=== PATIENT | male | born 1965 | race Caucasian/White ===

== ENCOUNTER → 2017-09-04 14:48 | Outpatient (CLI) | payer OTHER, SELFPAY ==
--- NOTE | 2017-09-04 14:50 | CT_ITS ---
STUDY: CT ABDOMEN AND PELVIS WITH CONTRAST REASON FOR EXAM: Male, 52 years old. Diverticulitis RADIATION DOSAGE (If Supplied By Facility): CTDIvol = ( 9.41 ) mGy, DLP = ( 686.15 ) mGycm TECHNIQUE: Transaxial images were obtained from the dome of the diaphragm to the symphysis pubis without oral contrast. 100 ml of Isovue 300 contrast was administered. Sagittal and coronal images were reconstructed. Individualized dose optimization techniques were used for this CT. COMPARISON: None. FINDINGS: There is atelectasis at the lung bases. The visualized portions of the heart and pericardium are within normal limits. There are no calcified gallstones present. The liver is within normal limits. There are no suspicious hepatic lesions. The spleen is normal in size. There is fatty atrophy of the pancreas. The adrenal glands are within normal limits. There are no obstructing renal stones. There is no hydronephrosis. There are no focal renal lesions. Normal visualized stomach. There is no bowel obstruction or inflammation. There is a large amount of stool in the colon, consistent with constipation. The appendix is not visualized, but there are no findings to suggest acute appendicitis. There are fat-containing ventral hernias. There is no bowel containing hernia. The aorta is normal in caliber. There is no abdominal or pelvic free air, free fluid, fluid collection or lymphadenopathy. There are no destructive osseous lesions. The patient is status post posterior fusion of L3-L5. CT/Abdomen/Pelvis WITH Contrast IMPRESSION: No bowel obstruction or inflammation. Constipation. Fat containing ventral hernias. No bowel-containing hernia. Fatty atrophy of the pancreas. Electronically Signed: Alex Estrada, at 16:25 EDT Tel , Service support ,
== END ==
PROVIDERS: Family Provider Internal Medicine; PCP Internal Medicine; Visit Provider Internal Medicine
DX: K57.32 Diverticulitis of large intestine without perforation or abscess without bleeding (principal); K50.90 Crohn's disease, unspecified, without complications
CPT/HCPCS: 74177; Q9967

== ENCOUNTER 2019-02-21 11:49 | Day surgery (SDC) | payer OTHER, SELFPAY ==
[2019-02-21] VITALS (7 sets, daily range): BP systolic 112–143; BP diastolic 50–90; PULSE 51–68; RESP 16; TEMP 36.2–36.8; O2SAT 94–98; BMI 24.3
[2019-02-21] MEDS: Lactated Ringers 1,000 ML 100 ML IV ×2 (12:28→14:30)
--- NOTE | 2019-02-21 13:00 | COLBX_PTH ---
PATIENT: XIOMARA VALDES LOC: EN U#:[id number] AGE/SX: 53/M ROOM: RE02/21/[address]: Dr. Alka Simpson MD : 1965 BED: DIS: 02/21/2019 SPEC #: [id number] RECD: 02/21/19 15:37 STATUS: OUMAR REHeather #: [id number] YAS: 02/21/19 13:[address]: Alka Simpson DEPT: SURGICAL PATHOLOGY RECD BY: Grace Coreas ENTERED: 02/22/19 11:02 SP TYPE: COLON BX OTHR DR: Dr. Morgan Yousif MD Tissues: Cecum, NOS Procedures: Surgery Specimen Level IV HEADER OPERATION: Colonoscopy (MAC) PRE-OP DIAGNOSIS: Screening TISSUE SUBMITTED: Cecal polyp MICROSCOPIC DIAGNOSIS Cecal polyp, biopsy: Fragments of tubular adenoma. AM:zaki 02/23/19 MICROSCOPIC DESCRIPTION Slides are reviewed. GROSS DESCRIPTION Received in fixative is one container labeled with the patient's name and designated cecal polyp. The specimen consists of multiple irregular fragments of light alvarez soft tissue that in aggregate measure 0.5 x 0.5 x 0.1 cm. The specimen is totally submitted in one cassette. / SJ:zaki 02/22/19 TC:5 CPT: 10701
--- NOTE | 2019-02-21 13:56 | HP.PCM_ITS ---
History and Physical Date of Admission: 02/21/19 HISTORY AND PHYSICAL ? Derick Schmitz 1965 ? REFERRING PHYSICIAN: Self ? CHIEF COMPLAINT: Consult (Consult Colonoscopy) ? HPI: The patient is a 53 year old male referred for endoscopy. Derick notes a personal history of Crohn's disease requiring colon resection in the late 80s- early 90s, also reports history of colon polyp. Notes chronic issues with constipation. Patient denies any blood in stools, black tarry stools or abdominal pain. Denies family history of colon issues. The patient notes no upper GI complaints currently. States previously had EGD in 2015 without concerning findings. ? Derick has undergone prior colonoscopy, states last endoscopy procedure was in April 2015, records not currently available for review. ? Patient's past medical history is significant for Crohn's as noted above, history of diverticulitis, spinal stenosis, has undergone multiple back surgeries and uses fentanyl patches. Notes has also had several episodes of pneumonia. Has incisional hernias due to his prior Crohn's surgeries which are asymptomatic. Patient denies any chest pain, shortness of breath or recent hospitalizations. Denies problems with sedation in the past. ? ? PAST?MEDICAL?HISTORY PAST MEDICAL HISTORY Diagnosis Date ? Crohn's colitis (HCC) ? ? Depression ? ? Diverticulitis ? ? GERD (gastroesophageal reflux disease) ? ? Interstitial cystitis ? ? Osteoporosis ? ? Spinal stenosis ? ? ? PAST?SURGICAL?HISTORY PAST SURGICAL HISTORY Procedure Laterality Date ? APPENDECTOMY HX ? ? ? BACK SURGERY HX ? 1995 ? Lumbar x10 ? CATARACT EXTRACTION HX ? ? ? INGUINAL HERNIA REPAIR HX Right 2018 ? KNEE SURGERY HX Left 1981 ? PAST SURGICAL HISTORY OF ? ? ? d/t crohns ? PAST SURGICAL HISTORY OF ? 2002 ? placement and removal of morphine pump ? ROTATOR CUFF REPAIR Left 2013 ? SHOULDER SURGERY HX Right 2017 ? bone spur ? TONSILLECTOMY HX ? 1976 ? ? ? CURRENT?MEDICATIONS ? Current Outpatient Medications: acetaminophen (TYLENOL) 500 mg tablet Take 500 mg by mouth. fentaNYL (DURAGESIC) 50 mcg/hr Apply 3 Patches as directed every 72 hours. ? No current facility-administered medications for this visit. ? ALLERGIES: Ciprofloxacin; Penicillin ? PERSONAL HISTORY: SOCIAL?HISTORY Social History Socioeconomic History Marital status: Spouse name: Not on file Number of children: Not on file Years of education: Not on file Highest education level: Not on file Occupational History Not on file Social Needs Financial resource strain: Not on file Food insecurity: Worry: Not on file Inability: Not on file Transportation needs: Medical: Not on file Non-medical: Not on file Tobacco Use Smoking status: Never Smoker Smokeless tobacco: Never Used Substance and Sexual Activity Alcohol use: Not on file Drug use: Not on file Sexual activity: Not on file Lifestyle Physical activity: Days per week: Not on file Minutes per session: Not on file Stress: Not on file Relationships Social connections: Talks on phone: Not on file Gets together: Not on file Attends uatsdin service: Not on file Active member of club or organization: Not on file Attends meetings of clubs or organizations: Not on file Relationship status: Not on file Intimate partner violence: Fear of current or ex partner: Not on file Emotionally abused: Not on file Physically abused: Not on file Forced sexual activity: Not on file Other Topics Concerns: Not on file Social History Narrative Not on file ? FAMILY HISTORY: FAMILY?HISTORY History reviewed. No pertinent family history. ? REVIEW OF SYMPTOMS: The review of systems data was entered by the nurse and reviewed by me ? Nursing Notes: Sung Ravi LPN 01/10/2019 8:34 AM Signed REVIEW OF SYSTEMS: General: The patient denies fatigue, denies weight loss, denies weight gain, denies feeling hot, and NOTES feelings of cold. Eyes: The patient denies glaucoma, NOTES eye injury/surgery, does not wear glasses or contacts. Ear/Nose/Throat: The patient denies allergies, denies hayfever, denies ear infections, and denies bloody noses. Cardiovascular: The patient denies chest pain, denies heart disease, NOTES high blood pressure,denies cardiac stent, denies prior heart attack, denies irregular heart beat, denies high cholesterol, denies poor circulation, denies heart failure, other cardiac issues, denies claudication, denies cold feet, denies peripheral arterial stent. Respiratory: The patient denies tuberculosis, NOTES pneumonia, denies frequent cough, denies pulmonary embolism, denies shortness of breath, and denies coughing up blood. Gastrointestinal: The patient denies difficulty swallowing, NOTES acid reflux, denies ulcers, denies vomiting, denies jaundice/hepatitis, denies gallbladder problems, denies black or tarry stools, denies hemorrhoids, denies bleeding from rectum, NOTES diverticulitis, NOTES constipation, denies diarrhea, denies loss of stool control, and NOTES hernias. Kidney/Bladder: The patient denies kidney stones, NOTES urine infections, and denies bloody urine. Skin: The patient denies a history of skin cancer, denies bleeding/changing moles, and denies a history of skin rash. Neurologic: The patient denies a history of epilepsy/convulsions, denies headaches, denies head/spinal injuries, and denies stroke/TIA. Psychiatric: The patient denies psychiatric medications, NOTES depression, and denies voices, denies substance abuse. Endocrine: The patient denies thyroid disorders, denies diabetes, and denies hormonal problems. Hematologic: The patient denies a history of bruising, denies bleeding, and denies anemia, denies blood clots. Infections: The patient denies a history of measles and mumps, denies r heumatic fever, and denies sexually transmitted diseases. Musculoskeletal: The patient NOTES back pain/injury, NOTES back problems, denies sciatica, denies knee/foot trouble, NOTES arthritis, or denies gout. ? ? When was patient's last Mammogram screening? N/A ? Last Colonoscopy: 04/29 ? Sung Ravi LPN I have confirmed and edited as necessary, the PFSH and ROS obtained by others. ? PHYSICAL EXAMINATION: ? General: The patient is 53 year old male, well nourished, well hydrated in no acute distress. The patient is oriented to time, place, and person. ? VITALS: Blood pressure 148/88, pulse 82, temperature 36.6 ?C (97.9 ?F), height 182.9 cm (6'), weight 85.5 kg (188 lb 9.6 oz), SpO2 98 %. Body mass index is 25.58 kg/m?. ? HEENT: Normal cephalic, ataumatic, pupils are equally round, sclera are anicteric, mucous membranes are moist, oropharynx is clear. Neck has no masses, asymmetry or lymphadenopathy. ? Respiratory: Clear to auscultation and percussion. Normal respiratory excursion and pattern. ? Cardiac: Examination is regular rate and rhythm. Normal S1/S2 ? Abdominal exam: Soft, nontender, with no palpable masses. No hepatosplenomegaly. No palpable hernias. ? Extremities: no clubbing, cyanosis or edema. No adenopathy. ? LABORATORY VALUES: As Noted ? RADIOLOGIC STUDIES: As Noted ? ? Assessment IMPRESSION: encounter for surveillance colonoscopy, personal history of Crohn's colitis and colon polyps ? PLAN: I have reviewed my findings with the surgeon. Will plan for lower endoscopy. We discussed the risks and benefits of the planned endoscopy. I have informed the patient that complications can occur including failure to complete the endoscopy and perforation. The patient had the opportunity to ask questions concerning the planned endoscopy. My staff has also explained the procedure to the patient in understandable terms and has given the patient printed material concerning the procedure. The patient freely consents to surgery. ? I plan to use Golytely bowel preparation ? We will plan for Monitored Anesthetic Care. ? ? Diagnoses: (Z12.11) Encounter for screening for malignant neoplasm of colon (primary encounter diagnosis) (Z87.19) History of Crohn's disease (Z86.010) History of colonic polyps ? ? Molly Portillo PA-C
--- NOTE | 2019-02-21 14:41 | OP.ENDO_ITS ---
02/21/2019 Morgan Yousif Re : Colonoscopy procedure for Derick Schmitz Dear Benja This procedure was performed on Thursday, February 21, 2019. My impressions and recommendations are as follows: Impressions : - Preparation of the colon was fair. - Two 5 to 10 mm polyps in the cecum, removed with a hot snare. Resected and retrieved. - Diverticulosis in the sigmoid colon. - Non-bleeding internal hemorrhoids. Recommendations : - Repeat colonoscopy date to be determined after pending pathology results are reviewed for surveillance based on pathology results. - Continue present medications. My findings are described in the full procedure note, which is enclosed. If I can be of further assistance, please feel free to contact me at Doctor phone number(s): , Work: . Sincerely, MD Alka Dinh MD 02/21/2019 2:41:28 PM This report has been signed electronically.
== END 2019-02-21 15:21 | disposition home or self-care (01) ==
LOC: EN 11:50 → AC 11:51
PROVIDERS: Family Provider Internal Medicine; PCP Internal Medicine; Referring Provider Internal Medicine; Visit Provider Surgery
PROC: 0DJD8ZZ Inspection of Lower Intestinal Tract, Via Natural or Artificial Opening Endoscopic (ICD-10-PCS; CPT 45378; principal; 2019-02-21 12:55)
DX: Z12.11 Encounter for screening for malignant neoplasm of colon (principal); D12.0 Benign neoplasm of cecum; K57.30 Diverticulosis of large intestine without perforation or abscess without bleeding; K64.8 Other hemorrhoids; K50.90 Crohn's disease, unspecified, without complications; K21.9 Gastro-esophageal reflux disease without esophagitis; D64.9 Anemia, unspecified; M48.00 Spinal stenosis, site unspecified; Z86.010 Personal history of colon polyps; Z79.891 Long term (current) use of opiate analgesic
CPT/HCPCS: 45380; 88305; J7050; J7120

== ENCOUNTER → 2021-12-04 | Outpatient (CLI) | payer OTHER, SELFPAY ==
[2021-12-04 13:53] LABS: Amphetamine Urine VISTA NEGATIVE (<1000 ng/mL); Barbiturate Urine VISTA NEGATIVE (< 200 ng/mL); Benzodiazepine Urine VISTA NEGATIVE (< 200 ng/mL); Cocaine Urine VISTA NEGATIVE (< 300 ng/mL); Ecstacy Urine VISTA NEGATIVE (< 500 ng/mL); Methadone Urine VISTA NEGATIVE (< 300 ng/mL); PCP Urine VISTA NEGATIVE (< 25 ng/mL); THC Urine VISTA NEGATIVE (< 50 ng/mL); Vista UDS pH Range 6
== END | disposition home or self-care (01) ==
LOC: LABSPEC 12:43
PROVIDERS: PCP Internal Medicine; Visit Provider Anesthesiology Pain Medicine
DX: F11.20 Opioid dependence, uncomplicated (principal)
CPT/HCPCS: 80307

== ENCOUNTER 2022-03-13 11:35 | Emergency (ER) | payer OTHER, SELFPAY ==
[2022-03-13 11:36] VITALS: BP 169/139; PULSE 50; RESP 16; TEMP 36.5; O2SAT 100; BMI 25.7
--- NOTE | 2022-03-13 12:29 | EKG12_ITS ---
Test Reason : Blood Pressure : / mmHG Vent. Rate : 047 BPM Atrial Rate : 047 BPM P-R Int : 158 ms QRS Dur : 084 ms QT Int : 452 ms P-R-T Axes : 047 033 044 degrees QTc Int : 400 ms Sinus bradycardia Otherwise normal ECG Confirmed by MURPHY OTERO, SHALINI ([id number]), technical editor LISSETTE NICHOLS ([id number]) on 03/14/2022 10:38:24 AM Referred By: LAURA Confirmed By:SHALINI ARRINGTON MD
[2022-03-13 13:02] LABS: Absolute Lymphocyte Count 2.21 X10^3/uL (0.83-4.51); Absolute Neutrophil Count 3.6 X10^3/uL (2.0-7.7); Basophil# 0.03 X10^3/uL; Basophil% 0.5 % (0-1); Eosinophil# 0.08 X10^3/uL; Eosinophils% 1.2 % (0-5); Hematocrit 41.2 % (40-54); Hemoglobin 13.5 g/dL (13.0-16.5); Lymphocyte # 2.21 X10^3/ul (0.83-4.51); Lymphocyte % 34.3 % (19-41); Mean Corp Hgb Conc 32.8 g/dL (32-36); Mean Corpuscular Volume 91.6 fL (80-94); Mean Platelet Vol. 8.6 fl (6.2-12.0); Monocyte# 0.47 X10^3/uL; Monocyte% 7.3 % (0-10); NRBC Flagged by Analyzer 0 % (0-5); Neutrophil # 3.63 X10^3/uL (2.7-7.7); Neutrophil % 56.4 % (47-70); Platelet Count 252 K/mm3 (150-450); RBC Distribution Width CV 12.6 % (11.6-14.6); RBC Distribution Width SD 42.4 fl (35.1-43.9); White Blood Count 6.4 K/mm3 (4.4-11.0)
--- NOTE | 2022-03-13 13:12 | CT_ITS ---
STUDY: CT BRAIN WITHOUT CONTRAST REASON FOR EXAM: Male, 56 years old. Hypertension. Dizziness. RADIATION DOSAGE (If Supplied By Facility): CTDIvol = ( 47.06 ) mGy, DLP = ( 872.68 ) mGycm TECHNIQUE: Transaxial CT imaging of the brain was performed without administration of intravenous contrast material. Individualized dose optimization techniques were used for this CT. COMPARISON: No relevant priors. FINDINGS: Normal soft tissue structures. Normal calvarium. Normal size ventricles and extra-axial spaces for the patient''s age. Normal white matter tracts of the cerebral hemispheres. Normal basal ganglia and thalami. Normal brainstem. Normal cerebellum. There is no intracranial hemorrhage. There are no findings of an acute ischemic infarction. Normal visualized paranasal sinuses. CT/Brain/Head without Contrast IMPRESSION: Normal unenhanced CT scan of the brain. Electronically Signed: Yury Douglass MD at 13:26 EDT ,
[2022-03-13 13:14] LABS: Anion Gap 4 (5-15); BUN 13 mg/dL (7-18); BUN/Creat Ratio 15.5 RATIO (10-20); Chloride 109 mmol/L (98-107); Creatinine, Serum 0.84 mg/dL (0.70-1.30); EST Glomerular Filtration Rate 99 mL/min (>60); Est Glom Filt Rate - Afr Amer 120 mL/min (>60); Estimated Creatinine Clearance 105.21 ml/min; Glucose 107 mg/dL (74-106); Potassium 4.3 mmol/L (3.5-5.1); Sodium Level 143 mmol/L (136-145)
[2022-03-13 13:20] LABS: Prothrombin Time (Protime)PT. 13.4 SECONDS (11.7-14.9)
[2022-03-13 13:21] LABS: Partial Thromboplast Time 31.2 Seconds (24.1-36.2)
[2022-03-13] MEDS: Metoclopramide 10 MG/2 ML Vial 5 MG IV (13:31)
[2022-03-13 13:36] VITALS: BP 126/65; PULSE 45; RESP 18; O2SAT 95
--- NOTE | 2022-03-13 13:54 | EX.ED.DYSGE1 ---
HPI History of Present Illness Chief Complaint: Dizziness Informant: patient Narrative Narrative: Sent over from urgent care after brief evaluation there. Reported vertigo symptoms for 3 days he was off balance with room spinning and falling to the left side. He went there concerns for ear infection however denies any ear pain. No recent sinus congestion or upper respiratory illness. History of Crohn's disease along with autoimmune deficiency he is not on any immunosuppressants. History of multiple spine surgeries. History of hypertension on medications. Mild headache. No speech changes no weakness. No stroke history. States occasional nausea when the room is spinning. No current symptoms. Reports past 2 days intermittent diarrhea nonbloody. No recent antibiotics. Tolerating oral fluids. Prior similar symptoms: No PFSH PFSH Home Medications acetaminophen 500 mg tablet 1,000 mg PO BID 02/17/19 [History Last Taken Unknown] fentanyl 87.5 mcg/hour transdermal patch 1 ea TD Q72H 02/17/19 [History Last Taken Unknown] escitalopram oxalate 10 mg tablet 10 mg PO DAILY 03/13/22 [History Last Taken Unknown] meclizine 25 mg tablet 25 mg PO TID PRN dizziness #20 tabs 03/13/22 [Rx Last Taken Unknown] methocarbamol 500 mg tablet 500 mg PO DAILY 03/13/22 [History Last Taken Unknown] oxycodone myristate 13.5 mg capsule sprinkle extend release 12hr(DON'T CRUSH) (Xtampza ER) 13.5 mg PO TID 03/13/22 [History Last Taken Unknown] propranolol 20 mg tablet 20 mg PO TID 03/13/22 [History Last Taken Unknown] rizatriptan 10 mg tablet 10 mg PO Q2H PRN PRN Anxiety 03/13/22 [History Last Taken Unknown] telmisartan 20 mg tablet 20 mg PO DAILY 03/13/22 [History Last Taken Unknown] Allergy/AdvReac Type Severity Reaction Status Date / Time ciprofloxacin [From Cipro] Allergy Hives Verified 03/13/22 11:41 meperidine [From Demerol] AdvReac Nausea Verified 03/13/22 11:41 annectine Allergy stopped Uncoded 03/13/22 11:41 breathing Social History Smoking Status: Never smoker ROS ROS ED Constitutional Constitutional ED: Denies chills, fever(s) or sweats Eyes Eyes: Denies change in vision ENT ENT ED: Denies dysphagia or sore throat Cardiovascular Cardiovascular: Denies chest pain, leg edema, palpitations or racing heartbeat Respiratory/Chest Respiratory/Chest: Denies cough, dyspnea or dyspnea on exertion Gastrointestinal Gastrointestinal: Reports nausea; Denies abdominal pain, diarrhea or vomiting Genitourinary Genitourinary ED: Denies dysuria, hematuria or urinary frequency Musculoskeletal Musculoskeletal: Denies back pain, extremity pain or neck pain Integumentary Denies rash or wounds Neurologic Neurologic: Reports headache(s) and other Details: Dizziness ; Denies paresthesias or weakness EXAM Physical Exam Const Vital Signs: 03/13/22 11:36 03/13/22 11:59 03/13/22 12:29 Temperature 97.7 F L Temperature Source Temporal Pulse Rate 50 L Respiratory Rate 16 Respiratory Effort Normal Non-Labored Respiratory Pattern Normal Blood Pressure 169/139 H Blood Pressure Mean 149 Pulse Ox 100 Oxygen Delivery Method Room Air Room Air 03/13/22 13:36 Temperature Temperature Source Pulse Rate 45 L Respiratory Rate 18 Respiratory Effort Respiratory Pattern Blood Pressure 126/65 H Blood Pressure Mean 85 Pulse Ox 95 Oxygen Delivery Method Room Air Positive well nourished and well developed General Appearance ED: well developed and NAD HEENT Reports moist mucous membranes normocephalic and atraumatic Eyes PERRL, EOMs intact bilaterally and conjunctivae normal Eyes Narrative: No nystagmus General Eye ED: Yes normal appearance of both eyes Neck no lymphadenopathy and supple Neck Narrative: No meningismus General: Negative for tenderness Chest Wall Chest: Negative for tenderness Resp normal respiratory effort and normal air movement Effort and Inspection: symmetric chest movement; Negative for respiratory distress Cardio regular rate, regular rhythm and no murmurs Peripheral Pulses: pulses 2+ throughout GI normal to inspection, nondistended, normoactive bowel sounds and non-tender Palpation: Negative for guarding or rebound tenderness present Back/Spine no CVA tenderness and no thoracic nor lumbar tenderness Extremity normal to inspection General Extremety ED: Negative for edema or tenderness General Extremity: Negative for edema Neuro oriented x3, CN's II-XII intact bilaterally and no sensory deficits noted Neuro Narrative: NIH 0. [place]kie-Hallpike negative with sitting upright on right side evaluation felt mild symptoms however there is no nystagmus with this. Sensorium / Orientation: awake and alert Skin no rashes or lesions noted and no wounds MDM MDM MDM Narrative Medical decision making narrative: Patient sinus bradycardia on EKG this is normal for him. Presents vertigo symptoms cannot reproduce that he had symptoms with sitting up. There is no nystagmus. CT head obtained which was negative. Was given IV Reglan. With his diarrhea labs were obtained normal electrolytes hemoglobin 13.5. Reevaluation improving symptoms he was ambulated upon standing had slight symptoms however able to ambulate with no return of symptoms. He feels comfortable going home. Prescription for meclizine to use as needed. Strict return precautions. Discussed follow-up with PCP with new onset symptoms that further imagings can be obtained as an outpatient. Patient understands. All questions were answered. Lab Data Attestation: I reviewed the patient's lab results. Labs: Laboratory Results - last 24 hr 03/13/22 03/13/22 03/13/22 12:50 12:50 12:50 WBC 6.4 RBC 4.50 L Hgb 13.5 Hct 41.2 MCV 91.6 MCH 30.0 MCHC 32.8 RDW Std Deviation 42.4 RDW Coeff of Gus 12.6 Plt Count 252 MPV 8.6 Immature Gran % (Auto) 0.300 Neut % (Auto) 56.4 Lymph % (Auto) 34.3 [place] % (Auto) 7.3 Eos % (Auto) 1.2 Baso % (Auto) 0.5 Absolute Neuts (auto) 3.6 Absolute Lymphs (auto) 2.21 Nucleated RBC % 0 PT 13.4 INR 1.0 APTT 31.2 Sodium 143 Potassium 4.3 Chloride 109 H Carbon Dioxide 30.0 Anion Gap 4 L BUN 13 Creatinine 0.84 Estim Creat Clear Calc 105.21 Est GFR (MDRD) Af Amer 120 Est GFR (MDRD) Non-Af 99 BUN/Creatinine Ratio 15.5 Glucose 107 H Calcium 9.0 Radiography Diagnostic Testing: Clinical Impression(s) from Imaging Studies Brain CT 03/13/22 13:12 IMPRESSION: Normal unenhanced CT scan of the brain. Electronically Signed: Yury Douglass MD at 13:26 EDT , EKG Initial EKG: Attestation: I personally reviewed and interpreted this EKG as follows: Comments: Sinus rate of 47, no ST or T wave changes. Discharge Plan Triage Chief Complaint: Dizziness ED Provider: Kenny Mckay Dx/Rx/DC Orders Clinical Impression: Vertigo, Nausea, History of Crohn's disease, Diarrhea Instructions: ED Vertigo, Unspecified Prescriptions: New meclizine 25 mg tablet 25 mg PO TID PRN (Reason: dizziness) Qty: 20 0RF No Action acetaminophen 500 MG tablet 1,000 mg PO BID fentanyl 1 EACH patch 72 hour 1 ea TD Q72H methocarbamol 500 mg tablet 500 mg PO DAILY rizatriptan 10 mg tablet 10 mg PO Q2H PRN PRN (Reason: Anxiety) Label Comments: TAKE 1 TABLET BY MOUTH NEEDED. MAY REPEAT IN 2 HOURS IF NEEDED telmisartan 20 mg tablet 20 mg PO DAILY Label Comments: TAKE 1 TABLET BY MOUTH EVERY DAY propranolol 20 mg tablet 20 mg PO TID Label Comments: TAKE 1 TABLET BY MOUTH THREE TIMES A DAY escitalopram oxalate 10 mg tablet 10 mg PO DAILY Xtampza ER 13.5 mg cap,sprinkl,ER12hr(DONT CRUSH) 13.5 mg PO TID Label Comments: TAKE 1 CAPSULE BY MOUTH 3 TIMES A DAY FOR 28 DAYS Primary Care Provider: Shara Temple Referrals: Shara Temple MD [Primary Care Provider] - Activity Restrictions/Additional Instructions: CT head normal. Labs are stable. Continue oral fluids for hydration. Use meclizine as needed. Follow-up with your PCP for further testing, return if any worsening symptoms. Disposition Disposition: Home, Self Care
[2022-03-13 14:47] VITALS: RESP 18
== END 2022-03-13 14:57 | disposition home or self-care (01) ==
PROVIDERS: Emergency Provider Emergency Medicine; PCP Internal Medicine; Visit Provider Emergency Medicine
DX: R42 Dizziness and giddiness (principal); K50.90 Crohn's disease, unspecified, without complications; I10 Essential (primary) hypertension; R51.9 Headache, unspecified; R11.0 Nausea; R19.7 Diarrhea, unspecified; Z79.899 Other long term (current) drug therapy
CPT/HCPCS: 70450; 80048; 85025; 85610; 85730; 93005; 96374; 99284; A4216

== ENCOUNTER → 2022-07-17 | Outpatient (CLI) | payer OTHER, SELFPAY ==
[2022-07-17 18:46] LABS: Amphetamine Urine VISTA NEGATIVE (<1000 ng/mL); Barbiturate Urine VISTA NEGATIVE (< 200 ng/mL); Benzodiazepine Urine VISTA NEGATIVE (< 200 ng/mL); Cocaine Urine VISTA NEGATIVE (< 300 ng/mL); Ecstacy Urine VISTA NEGATIVE (< 500 ng/mL); Methadone Urine VISTA NEGATIVE (< 300 ng/mL); PCP Urine VISTA NEGATIVE (< 25 ng/mL); THC Urine VISTA NEGATIVE (< 50 ng/mL); Vista UDS pH Range 7
== END | disposition home or self-care (01) ==
PROVIDERS: PCP Internal Medicine; Visit Provider Anesthesiology Pain Medicine
DX: F11.20 Opioid dependence, uncomplicated (principal)
CPT/HCPCS: 80307

== ENCOUNTER → 2022-08-05 | Outpatient (CLI) | payer OTHER, SELFPAY ==
[2022-08-05 16:14] LABS: Basophil# 0.05 X10^3/uL; Basophil% 0.5 % (0-1); Eosinophil# 0.13 X10^3/uL; Eosinophils% 1.4 % (0-5); Hemoglobin 13.9 g/dL (13.0-16.5); Lymphocyte % 27.2 % (19-41); Mean Corp Hgb Conc 33.1 g/dL (32-36); Mean Corpuscular Hgb 31.2 pg (27.0-32.0); Mean Corpuscular Volume 94.4 fL (80-94); Mean Platelet Vol. 8.2 fl (6.2-12.0); Monocyte% 7.3 % (0-10); NRBC Flagged by Analyzer 0 % (0-5); Neutrophil # 6.03 X10^3/uL (2.7-7.7); Neutrophil % 63.2 % (47-70); Platelet Count 283 K/mm3 (150-450); RBC Distribution Width CV 12.3 % (11.6-14.6); RBC Distribution Width SD 42.7 fl (35.1-43.9); Red Blood Count 4.45 M/mm3 (4.6-6.2); White Blood Count 9.6 K/mm3 (4.4-11.0)
[2022-08-05 16:20] LABS: Erythrocyte Sedimentation Rate 6 mm/hr (0-20)
[2022-08-05 17:16] LABS: ALB/GLOB Ratio 0.9 RATIO (0.9-2.4); AST(SGOT) 26 U/L (15-37); Alanine Aminotransfer ALT/SGPT 26 U/L (16-61); Albumin, Serum 3.7 g/dL (3.2-5.0); Alkaline Phosphatase 65 U/L (45-117); Anion Gap 5 (5-15); BUN 12 mg/dL (7-18); BUN/Creat Ratio 14.1 RATIO (10-20); CRP 7.45 mg/L (0.0-3.0); Calcium,Total 8.9 mg/dL (8.5-10.1); Chloride 104 mmol/L (98-107); Creatinine, Serum 0.85 mg/dL (0.70-1.30); EST Glomerular Filtration Rate 98 mL/min (>60); Est Glom Filt Rate - Afr Amer 119 mL/min (>60); Glucose 97 mg/dL (74-106); LDH 176 U/L (87-241); Protein, Total 7.7 g/dL (6.4-8.2); Sodium Level 139 mmol/L (136-145)
[2022-08-07 14:09] LABS: Anti-Centromere B Ab <0.2 AI (0.0-0.9); Anti-Chromatin <0.2 AI (0.0-0.9); Anti-Jo <0.2 AI (0.0-0.9); Anti-Scleroderma-70 AB <0.2 AI (0.0-0.9); Endomysial Antibody IgA Negative (Negative); RNP Ab 0.2 AI (0.0-0.9); SJOGREN'S Anti-SS-A test 0.7 AI (0.0-0.9); SJOGREN'S Anti-SS-B test < 0.2 AI (0.0-0.9); Smith Ab <0.2 AI (0.0-0.9)
[2022-08-07 22:52] LABS: Anti-dsDNA Ab 1 IU/mL (0-9); Immunoglobulin A 397 mg/dL (90-386); t-Transglutaminase IgA <2 U/mL (0-3)
[2022-08-12 03:07] LABS: Alpha-1-Globulins 0.2 g/dL (0.0-0.4); Alpha-2-Globulins 0.7 g/dL (0.4-1.0); Cytoplasmic Ab (C-ANCA) <1:20 titer (Neg:<1:20); Gamma Globulin 1.1 g/dL (0.4-1.8); Immunoglobulin A 384 mg/dL (90-386); Immunoglobulin E 16 IU/mL (6-495); Immunoglobulin G 997 mg/dL (603-1613); Immunoglobulin M 213 mg/dL (20-172); PROEL- TOTAL PROTEIN 7.2 g/dL (6.0-8.5)
[2022-08-12 10:34] LABS: Perinuclear Ab (P-ANCA) <1:20 titer (Neg:<1:20)
== END | disposition home or self-care (01) ==
PROVIDERS: PCP Internal Medicine; Visit Provider Nurse Practitioner Adult Health
DX: K50.10 Crohn's disease of large intestine without complications (principal)
CPT/HCPCS: 36415; 80053; 82784; 82785; 83516; 83615; 84165; 85025; 85652; 86140; 86225; 86235; 86255; 86256; 86334

== ENCOUNTER 2022-10-27 05:23 | Day surgery (SDC) | payer OTHER, SELFPAY ==
--- NOTE | 2022-10-27 | GASB_PTH ---
PATIENT: XIOMARA VALDES LOC: EN U#:[id number] AGE/SX: 57/M ROOM: RE10/27/[address]: Dr. Troy Ellis DO : 1965 BED: DIS: 10/27/2022 SPEC #: [id number] RECD: 10/27/22 11:11 STATUS: OUMAR GALE #: [id number] YAS: 10/27/22 00:[address]: Troy Ellis DEPT: SURGICAL PATHOLOGY RECD BY: Raymond Lin ENTERED: 10/27/22 11:12 SP TYPE: Gastric Bx OTHR DR: Dr. Shara Temple MD Tissues: A - Duodenum, NOS B - Gastric mucous membrane C - Esophageal mucous membrane D - Ascending colon E - Cecum, NOS F - Ileum, NOS G - COLON BIOPSY H - Sigmoid colon biopsy Procedures: Special Stain Group II Surgery Specimen Level IV Alcian Blue/PAS (control) HEADER OPERATION: Colonoscopy with polypectomy, biopsies, EGD ([facility] [place]) PRE-OP DIAGNOSIS: Crohn?s colitis, chronic constipation TISSUE SUBMITTED: A ? Duodenum biopsy, B ? Antrum biopsy for H. pylori and path, C ? Distal esophagus biopsy, D ? Ascending colon polyps, E ? Cecum polyp, F ? terminal ileum biopsy, G ? Random colon biopsies, H ? Sigmoid colon polyp biopsies MICROSCOPIC DIAGNOSIS A. Duodenum, biopsy: Fragments of duodenal mucosa, no pathologic diagnosis. B. Antrum, biopsy: Mild gastritis. See microscopic description and comment. C. Distal esophagus, biopsy: Fragments of gastroesophageal mucosa with chronic inflammation. Intestinal metaplasia (goblet cell metaplasia) not identified. See comment. D. Ascending colon polyp: Fragments of tubular adenoma. Fragments of fecal material. E. Cecum polyp, biopsy: Fragments of tubular adenoma. Fragments of fecal material. F. Terminal ileum, biopsy: Fragments of small intestinal mucosa, no pathologic diagnosis. G. Colon, random biopsy: Fragments of colonic mucosa, no pathologic diagnosis. H. Sigmoid colon polyp, biopsy: Tubular adenoma. SJ:zaki 10/28/2022 COMMENT B. The results of immunohistochemistry for Helicobacter pylori will be reported separately ([id number]). C. Alcian blue/PAS stain with matched control is used in the evaluation of the specimen. MICROSCOPIC DESCRIPTION Slides are reviewed. B. The specimen shows fragments of gastric mucosa with chronic inflammatory cell infiltrates in the lamina propria consisting of lymphocytes and plasma cells, consistent with mild chronic gastritis. GROSS DESCRIPTION A - Received in fixative is one container labeled with the patient's name and designated duodenum biopsy. The specimen consists of multiple irregular fragments of light alvarez soft tissue that in aggregate measure 1.0 x 0.3 x 0.1 cm. The specimen is totally submitted in one cassette. B - Received in fixative is one container labeled with the patient's name and designated antrum biopsy. The specimen consists of multiple irregular fragments of light alvarez soft tissue that in aggregate measure 0.8 x 0.3 x 0.1 cm. The specimen is totally submitted in one cassette. C - Received in fixative is one container labeled with the patient's name and designated distal esophagus biopsy. The specimen consists of two irregular fragments of light alvarez soft tissue that in aggregate measure 0.6 x 0.3 x 0.1 cm. The specimen is totally submitted in one cassette. D - Received in fixative is one container labeled with the patient's name and designated ascending colon polyp. The specimen consists of multiple fragments of alvarez-pink polypoid tissue mixed with fecal material that in aggregate measure 1.5 x 0.8 x 0.4 cm. The specimen is totally submitted in one cassette. E - Received in fixative is one container labeled with the patient's name and designated cecum polyp. The specimen consists of multiple irregular fragments of light alvarez soft tissue mixed with fecal material that in aggregate measure 2.5 x 0.7 x 0.2 cm. The specimen is totally submitted in one cassette. F - Received in fixative is one container labeled with the patient's name and designated terminal ileum. The specimen consists of multiple irregular fragments of light alvarez soft tissue that in aggregate measure 0.8 x 0.4 x 0.1 cm. The specimen is totally submitted in one cassette. G - Received in fixative is one container labeled with the patient's name and designated random colon biopsy. The specimen consists of multiple irregular fragments of light alvarez soft tissue that in aggregate measure 2.0 x 1.0 x 0.1 cm. The specimen is totally submitted in one cassette. H - Received in fixative is one container labeled with the patient's name and designated sigmoid colon polyp biopsy. The specimen consists of one irregular fragment of light alvarez soft tissue that measures 0.4 x 0.3 x 0.1 cm. The specimen is totally submitted in one cassette. / SJ:rg 10/27/2022 TC:1 CPT: 41351 x8, 42661
[2022-10-27 05:44] VITALS: BP 150/80; PULSE 69; RESP 18; TEMP 36.6; O2SAT 98; BMI 26.9
[2022-10-27] MEDS: Lactated Ringers 1,000 ML 15 ML IV (05:55)
--- NOTE | 2022-10-27 06:30 | IMM_PTH ---
PATIENT: XIOMARA VALDES LOC: [facility] U#:[id number] AGE/SX: 57/M ROOM: RE10/27/[address]: Dr. Troy Ellis DO : 1965 BED: DIS: 10/27/2022 SPEC #: [id number] RECD: 10/27/22 13:37 STATUS: OUMAR REQ #: [id number] YAS: 10/27/22 06:[address]: Troy Ellis DEPT: IMMUNOHISTOCHEMISTRY RECD BY: Samara Do ENTERED: 10/27/22 13:38 SP TYPE: IMMUNO OTHR DR: Dr. Shara Temple MD Tissues: B - Stomach, NOS Procedures: H Pylori (initial) PHYSICIAN & INSTITUTION [place] [id number] SPECIMEN INFORMATION: Tissue Source: B ? Antrum biopsy Clinical Info: Crohn?s colitis, chronic constipation Specimen Number: [id number] CPT code: 26416 METHODOLOGY: Deparaffinized sections of prefer/formalin-fixed tissue or PAP/DQ stained slides are incubated with monoclonal/polyclonal antibodies/oligonucleotide probes. Localization is made via biotin free immunoperoxidase method. Appropriate controls are performed and reacted as expected. Results on target cell population are indicated in the following table: RESULTS: ANTIBODY / CLONE RESULT Block B H Pylori (polyclonal) negative These tests were developed and their performance characteristics determined by [facility]. They may not have been cleared or approved by the U.S. Food and Drug Administration. The FDA has determined that such clearance or approval is not necessary. The above immunohistochemical/dualISH markers are ordered and reviewed by the Pathologist. INTERPRETATION: Antrum, biopsy: Negative for Helicobacter pylori organisms. SJ:zaki 10/29/2022
--- NOTE | 2022-10-27 06:32 | PCM.HP.BLA ---
History and Physical Date of Admission: 10/27/22 57 M who presents to the office today to establish with GI for Crohn's and chronic constipation. Diagnosed with Crohn's age 14. Had surgery at diagnosis, no bowel removed, cleaned it out. Had diarrhea for years until he went on opioids for chronic back pain. Developed constipation from opioids needed for chronic back pain for more than 30 years. Won't have BM for 5 days, then takes miralax. Gets overflow diarrhea. Takes miralax prn for constipation, makes him very gassy. Gets abd pain when he uses miralax. Also takes colace prn. Terrible diarrhea from Linzess. Was going to try Movantik but was concerned about possible withdrawal. No melena or hematochezia.? Worsening heartburn, previously on pantoprazole 40 mg daily--resumed it one week ago. Food is regurgitating. Has some mild dysphagia. Had EGD about 8 yrs ago, benign. Father from esophageal cancer. 02/[address] surgeon Dr Simpson, two 5-10 mm polyps at cecum, tubular adenoma. PMH: spinal stenosis, osteoporosis, depression, GERD, Crohn's, diverticulitis, HTN, migraines, RLS PSH: appy, tonsillectomy, back, knee, inguinal hernia repair, shoulder, for Crohn's ROS Const Constitutional: Positive for fatigue and weight change ENT ENT: No difficulty swallowing Gastro GI: Positive for abdominal pain, constipation and heartburn; No belching, bloating, change in bowel habits, change in stool character, coffee ground emesis, cramping, diarrhea, difficulty swallowing, feeling full early, excessive flatus, incontinent of stools, Vomiting blood/hematemesis, Blood in stool, loose stools, Black,tarry stools, nausea/dyspepsia, pain with swallowing, vomiting or other Musc Musculoskeletal: Positive for joint pain, back pain, muscle weakness, sciatica and restless legs Skin Skin: No yellowing of the eye or itchy eyes Neuro Neurology: Positive for restless legs Psych Psychiatric: No anxiety and Positive for depression Endo Endocrine: Positive for fatigue and weight change Aller/Imm Allergy/Immunologic: No itchy eyes Rodrigo/Lymp Hematologic/Lymphatic: No easy bleeding or easy bruising Exam Const General: cooperative and comfortable Nutritional Appearance: overweight Orientation: alert, awake and oriented x3 HENMT Head: normal to inspection Eyes Sclera: sclerae normal Resp Effort & Inspection: normal respiratory effort Skin General: no rashes or lesions noted Neuro Gait: normal gait Psych Mood: euthymic mood Quality Reporting Tobacco Screening ([facility] 138) Smoking Status: Never smoker Assessment and Plan Assessment and Plan (1) Crohn's colitis: ?Status:?Chronic ?Plan: Eval if he has Crohn's, will get blood and stool tests, will get EGD and colonoscopy, and will have capsule endoscopy placed during endoscopies. Will call pt with lab results. F/u 2 wks after endoscopies. (2) Chronic constipation: ?Status:?Chronic ?Plan: He will try taking miralax on a daily basis. ? ? ? Orders: Orders Comprehensive Metabolic Profil Today K50.10 - Crohn's disease of large intestine without complications ? CRP Today K50.10 - Crohn's disease of large intestine without complications ? LDH Today K50.10 - Crohn's disease of large intestine without complications ? CBC W/Diff, Automated Today K50.10 - Crohn's disease of large intestine without complications ? Erythrocyte Sed Rate Today K50.10 - Crohn's disease of large intestine without complications ? MATEO Comprehensive Panel Today K50.10 - Crohn's disease of large intestine without complications ? Calprotectin, Stool Today K50.10 - Crohn's disease of large intestine without complications ? Stool Lactoferrin/WBC Today K50.10 - Crohn's disease of large intestine without complications ? ANCA Today K50.10 - Crohn's disease of large intestine without complications ? Celiac Disease Profile Today K50.10 - Crohn's disease of large intestine without complications ? Immunoglobulins G/A/M/E Today K50.10 - Crohn's disease of large intestine without complications ? JEANETTE + Protein Elect, Serum Today K50.10 - Crohn's disease of large intestine without complications ? Miscellaneous Lab Procedure Today K50.10 - Crohn's disease of large intestine without complications ? I have examined the patient and the H&P has been reviewed. There are no clinical changes since date of exam.
[2022-10-27 07:16] VITALS: BP 101/61; BP 150/80; PULSE 69; RESP 16; TEMP 36.1; O2SAT 100
[2022-10-27 07:20] VITALS: BP 101/61; BP 150/80; PULSE 66; RESP 16; O2SAT 98
--- NOTE | 2022-10-27 07:21 | OP.EGD_ITS ---
Patient Name: Derick Schmitz Procedure Date: 10/27/2022 6:29 AM Date of : 1965 Age: 57 Procedure: Upper GI endoscopy Indications: Epigastric abdominal pain, Heartburn Providers: Troy Ellis DO Medicines: Monitored Anesthesia Care Patient Profile: This is a 57 year old male. Refer to note in patient chart for documentation of history and physical. Patient has symptoms of chronic heartburn. Complications: No immediate complications. Procedure: Pre-Anesthesia Assessment: - Prior to the procedure, a History and Physical was performed, and patient medications and allergies were reviewed. The risks and benefits of the procedure and the sedation options and risks were discussed with the patient. All questions were answered and informed consent was obtained. Patient identification and proposed procedure were verified by the physician in the pre-procedure area. Mental Status Examination: alert and oriented. Airway Examination: normal oropharyngeal airway and neck mobility. Respiratory Examination: clear to auscultation. CV Examination: normal. Prophylactic Antibiotics: The patient does not require prophylactic antibiotics. Prior Anticoagulants: The patient has taken no previous anticoagulant or antiplatelet agents. After reviewing the risks and benefits, the patient was deemed in satisfactory condition to undergo the procedure. The anesthesia plan was to use monitored anesthesia care (MAC). Immediately prior to administration of medications, the patient was re-assessed for adequacy to receive sedatives. The heart rate, respiratory rate, oxygen saturations, blood pressure, adequacy of pulmonary ventilation, and response to care were monitored throughout the procedure. The physical status of the patient was re-assessed after the procedure. After obtaining informed consent, the endoscope was passed under direct vision. Throughout the procedure, the patient's blood pressure, pulse, and oxygen saturations were monitored continuously. The colonoscope was introduced through the mouth, and advanced to the second part of duodenum. The upper GI endoscopy was accomplished without difficulty. The patient tolerated the procedure well. Moderate Sedation: Moderate (conscious) sedation was administered by the endoscopy nurse and supervised by the endoscopist. The following parameters were monitored: oxygen saturation, heart rate, blood pressure, and response to care. Scope In: 6:41:13 AM Scope Out: 6:47:15 AM Total Procedure Duration Time 0 hours 6 minutes 2 seconds Findings: LA Grade B (one or more mucosal breaks greater than 5 mm, not extending between the tops of two mucosal folds) esophagitis with no bleeding was found 36 to 38 cm from the incisors. Biopsies were taken with a cold forceps for histology. Verification of patient identification for the specimen was done. Estimated blood loss was minimal. Localized mild inflammation characterized by erythema and friability was found in the gastric antrum. Biopsies were taken with a cold forceps for histology. Verification of patient identification for the specimen was done. Estimated blood loss was minimal. A small hiatal hernia was present. Patchy mildly erythematous mucosa without active bleeding and with no stigmata of bleeding was found in the ampulla, in the duodenal bulb, in the first portion of the duodenum and in the second portion of the duodenum. Biopsies for histology were taken with a cold forceps for evaluation of celiac disease. Verification of patient identification for the specimen was done. Estimated blood loss was minimal. Impression: - LA Grade B reflux esophagitis. Biopsied. - Gastritis. Biopsied. - Small hiatal hernia. - Erythematous duodenopathy. Biopsied. Recommendation: - Discharge patient to home. - Resume previous diet. - Continue present medications. - Await pathology results. Procedure Code(s): --- Professional --- 45812, Esophagogastroduodenoscopy, flexible, transoral; with biopsy, single or multiple CPT copyright 2017 [employer]. All rights reserved. The codes documented in this report are preliminary and upon chain saw driver review may be revised to meet current compliance requirements. Troy Ellis DO 10/27/2022 7:20:40 AM This report has been signed electronically. Number of Addenda: 0 Note Initiated On: 10/27/2022 6:29 AM
--- NOTE | 2022-10-27 07:22 | OP.CCLET_ITS ---
10/27/2022 Shara Temple [address] [place] [address] Re : Upper GI endoscopy procedure for Derick Schmitz Dear Dr. Temple This procedure was performed on Thursday, October 27, 2022. My impressions and recommendations are as follows: Impressions : - LA Grade B reflux esophagitis. Biopsied. - Gastritis. Biopsied. - Small hiatal hernia. - Erythematous duodenopathy. Biopsied. Recommendations : - Discharge patient to home. - Resume previous diet. - Continue present medications. - Await pathology results. My findings are described in the full procedure note, which is enclosed. If I can be of further assistance, please feel free to contact me at . Sincerely, Troy Ellis, 10/27/2022 7:20:40 AM This report has been signed electronically.
[2022-10-27 07:25] VITALS: BP 116/56; BP 150/80; PULSE 58; RESP 16; O2SAT 100
--- NOTE | 2022-10-27 07:28 | OP.COLON_ITS ---
Patient Name: Derick Schmitz Procedure Date: 10/27/2022 6:47 AM Date of : 1965 Age: 57 Procedure: Colonoscopy Indications: Suspected Crohn's disease of the small bowel Providers: Troy Ellis DO Medicines: Monitored Anesthesia Care Patient Profile: This is a 57 year old male. Refer to note in patient chart for documentation of history and physical. Patient has symptoms of chronic heartburn. Last Colonoscopy: 5 years ago. Complications: No immediate complications. Procedure: Pre-Anesthesia Assessment: - Prior to the procedure, a History and Physical was performed, and patient medications and allergies were reviewed. The risks and benefits of the procedure and the sedation options and risks were discussed with the patient. All questions were answered and informed consent was obtained. Patient identification and proposed procedure were verified by the physician in the pre-procedure area. Mental Status Examination: alert and oriented. Airway Examination: normal oropharyngeal airway and neck mobility. Respiratory Examination: clear to auscultation. CV Examination: normal. Prophylactic Antibiotics: The patient does not require prophylactic antibiotics. Prior Anticoagulants: The patient has taken no previous anticoagulant or antiplatelet agents. After reviewing the risks and benefits, the patient was deemed in satisfactory condition to undergo the procedure. The anesthesia plan was to use monitored anesthesia care (MAC). Immediately prior to administration of medications, the patient was re-assessed for adequacy to receive sedatives. The heart rate, respiratory rate, oxygen saturations, blood pressure, adequacy of pulmonary ventilation, and response to care were monitored throughout the procedure. The physical status of the patient was re-assessed after the procedure. After I obtained informed consent, the scope was passed under direct vision. Throughout the procedure, the patient's blood pressure, pulse, and oxygen saturations were monitored continuously. The colonoscope was introduced through the anus and advanced to the terminal ileum. The colonoscopy was performed without difficulty. The patient tolerated the procedure well. The quality of the bowel preparation was adequate. Scope In: 6:49:34 AM Scope Withdrawal Time 0 hours 18 minutes 34 seconds Scope Out: 7:11:47 AM Total Procedure Duration Time 0 hours 22 minutes 13 seconds Findings: Hemorrhoids were found on perianal exam. Non-bleeding internal hemorrhoids were found during retroflexion. The hemorrhoids were Grade II (internal hemorrhoids that prolapse but reduce spontaneously). Multiple small and large-mouthed diverticula were found in the recto-sigmoid colon and sigmoid colon. A 5 mm polyp was found in the sigmoid colon. The polyp was sessile. The polyp was removed with a jumbo cold forceps. Resection and retrieval were complete. Verification of patient identification for the specimen was done. Estimated blood loss was minimal. Seven sessile polyps were found in the ascending colon and cecum. The polyps were 1 to 2 mm in size. These polyps were removed with a hot snare. Resection and retrieval were complete. Verification of patient identification for the specimen was done. Estimated blood loss was minimal. An area of mildly congested mucosa was found in the recto-sigmoid colon, in the sigmoid colon, at the hepatic flexure and in the ascending colon. Biopsies for histology were taken with a cold forceps from the entire colon for evaluation of microscopic colitis. Verification of patient identification for the specimen was done. Estimated blood loss was minimal. A patchy area of the terminal ileum was congested. Biopsies were taken with a cold forceps for histology. Verification of patient identification for the specimen was done. Estimated blood loss was minimal. Impression: - Hemorrhoids found on perianal exam. - Non-bleeding internal hemorrhoids. - Diverticulosis in the recto-sigmoid colon and in the sigmoid colon. - One 5 mm polyp in the sigmoid colon, removed with a jumbo cold forceps. Resected and retrieved. - Seven 1 to 2 mm polyps in the ascending colon and in the cecum, removed with a hot snare. Resected and retrieved. - Congested mucosa in the recto-sigmoid colon, in the sigmoid colon, at the hepatic flexure and in the ascending colon. Biopsied. - Congested mucosa in the terminal ileum. Biopsied. Recommendation: - Discharge patient to home. - Resume previous diet. - Continue present medications. - Await pathology results. - Repeat colonoscopy in 3 years for surveillance. Procedure Code(s): --- Professional --- 80996, Colonoscopy, flexible; with removal of tumor(s), polyp(s), or other lesion(s) by snare technique 71268, 59, Colonoscopy, flexible; with biopsy, single or multiple CPT copyright 2017 [employer]. All rights reserved. The codes documented in this report are preliminary and upon drier belt conveyor review may be revised to meet current compliance requirements. Troy Ellis DO 10/27/2022 7:27:59 AM This report has been signed electronically. Number of Addenda: 0 Note Initiated On: 10/27/2022 6:47 AM
--- NOTE | 2022-10-27 07:29 | OP.CCLET_ITS ---
10/27/2022 Shara Temple [address] [place] [address] Re : Colonoscopy procedure for Derick Schmitz Dear Dr. Temple This procedure was performed on Thursday, October 27, 2022. My impressions and recommendations are as follows: Impressions : - Hemorrhoids found on perianal exam. - Non-bleeding internal hemorrhoids. - Diverticulosis in the recto-sigmoid colon and in the sigmoid colon. - One 5 mm polyp in the sigmoid colon, removed with a jumbo cold forceps. Resected and retrieved. - Seven 1 to 2 mm polyps in the ascending colon and in the cecum, removed with a hot snare. Resected and retrieved. - Congested mucosa in the recto-sigmoid colon, in the sigmoid colon, at the hepatic flexure and in the ascending colon. Biopsied. - Congested mucosa in the terminal ileum. Biopsied. Recommendations : - Discharge patient to home. - Resume previous diet. - Continue present medications. - Await pathology results. - Repeat colonoscopy in 3 years for surveillance. My findings are described in the full procedure note, which is enclosed. If I can be of further assistance, please feel free to contact me at . Sincerely, Troy Ellis, 10/27/2022 7:27:59 AM This report has been signed electronically.
[2022-10-27 07:30] VITALS: BP 114/76; BP 150/80; PULSE 50; RESP 16; TEMP 36.1; O2SAT 100
[2022-10-27 07:33] VITALS: BP 150/80
[2022-10-31 00:07] LABS: Beef <0.10 kU/L (Class 0); Chocolate <0.10 kU/L (Class 0); Clam <0.10 kU/L (Class 0); Codfish <0.10 kU/L (Class 0); Corn <0.10 kU/L (Class 0); Egg, White <0.10 kU/L (Class 0); Egg, Whole <0.10 kU/L (Class 0); Milk (Cow) <0.10 kU/L (Class 0); Peanut <0.10 kU/L (Class 0); Pork <0.10 kU/L (Class 0); SCALLOP <0.10 kU/L (Class 0); SESAME SEED <0.10 kU/L (Class 0); Shrimp <0.10 kU/L (Class 0); Soybean <0.10 kU/L (Class 0); Walnut, (Food) <0.10 kU/L (Class 0); Wheat <0.10 kU/L (Class 0)
== END 2022-10-27 08:03 | disposition home or self-care (01) ==
LOC: EN 05:24 → AC 05:26
PROVIDERS: PCP Internal Medicine; Referring Provider Internal Medicine; Visit Provider Internal Medicine Gastroenterology
PROC: 0DJD8ZZ Inspection of Lower Intestinal Tract, Via Natural or Artificial Opening Endoscopic (ICD-10-PCS; CPT 45378; principal; 2022-10-27 06:25)
DX: K21.00 Gastro-esophageal reflux disease with esophagitis, without bleeding (principal); K50.10 Crohn's disease of large intestine without complications; K44.9 Diaphragmatic hernia without obstruction or gangrene; D12.0 Benign neoplasm of cecum; D12.2 Benign neoplasm of ascending colon; D12.5 Benign neoplasm of sigmoid colon; K64.1 Second degree hemorrhoids; K64.8 Other hemorrhoids; K29.70 Gastritis, unspecified, without bleeding; K57.30 Diverticulosis of large intestine without perforation or abscess without bleeding; K59.09 Other constipation; I10 Essential (primary) hypertension; E66.3 Overweight; Z68.27 Body mass index [BMI] 27.0-27.9, adult; Z79.899 Other long term (current) drug therapy; Z86.010 Personal history of colon polyps; Z80.0 Family history of malignant neoplasm of digestive organs
CPT/HCPCS: 43239; 45380; 45385; 36415; 86003; 86005; 88305; 88313; 88342; J7120; J2405

== ENCOUNTER → 2023-01-22 | Outpatient (CLI) | payer OTHER, SELFPAY ==
[2023-01-26 12:08] LABS: Immunoglobulin A 438 mg/dL (90-386); Immunoglobulin E 22 IU/mL (6-495); Immunoglobulin G 1139 mg/dL (603-1613); Immunoglobulin M 244 mg/dL (20-172); PROEL- A/G Ratio 1.1 (0.7-1.7); PROEL- Albumin 3.7 g/dL (2.9-4.4); PROEL- Alpha-1 Globulin 0.2 g/dL (0.0-0.4); PROEL- Alpha-2 Globulin 0.8 g/dL (0.4-1.0); PROEL- Beta Globulin 1.3 g/dL (0.7-1.3); PROEL- Gamma Globulin 1.2 g/dL (0.4-1.8); PROEL- Globulin, Total 3.5 g/dL (2.2-3.9); PROEL- TOTAL PROTEIN 7.2 g/dL (6.0-8.5)
== END | disposition home or self-care (01) ==
LOC: MTLAB 10:04
PROVIDERS: PCP Internal Medicine; Visit Provider Physician Assistant Medical
DX: L29.8 Other pruritus (principal)
CPT/HCPCS: 36415; 82784; 82785; 84165

== ENCOUNTER → 2023-04-23 | Outpatient (CLI) | payer OTHER, SELFPAY ==
[2023-04-23 11:09] LABS: Amphetamine Urine VISTA NEGATIVE (<1000 ng/mL); Barbiturate Urine VISTA NEGATIVE (< 200 ng/mL); Benzodiazepine Urine VISTA NEGATIVE (< 200 ng/mL); Cocaine Urine VISTA NEGATIVE (< 300 ng/mL); Ecstacy Urine VISTA NEGATIVE (< 500 ng/mL); Methadone Urine VISTA NEGATIVE (< 300 ng/mL); PCP Urine VISTA NEGATIVE (< 25 ng/mL); THC Urine VISTA NEGATIVE (< 50 ng/mL); Vista UDS pH Range 5
== END | disposition home or self-care (01) ==
LOC: LAB 10:04
PROVIDERS: PCP Internal Medicine; Referring Provider Anesthesiology Pain Medicine; Visit Provider Anesthesiology Pain Medicine
DX: F11.23 Opioid dependence with withdrawal (principal)
CPT/HCPCS: 80307

== ENCOUNTER → 2023-11-18 | Outpatient (CLI) | payer OTHER, SELFPAY ==
--- NOTE | 2023-11-18 08:13 | RAD_ITS ---
STUDY: X-RAY - ESOPHAGUS (BARIUM SWALLOW) WITH FLUOROSCOPY REASON FOR EXAM: Male, 58 years old. DYSPHAGIA TECHNIQUE: 16 view(s) of the esophagus were obtained following swallowing of barium. FLUOROSCOPY TIME (if supplied): (18 seconds) minutes/seconds. 13.48 mGy. COMPARISON: None. FINDINGS: There is no demonstrated esophageal foreign body. There is no demonstrated stricture or mucosal abnormality. Normal gastroesophageal junction, without a demonstrated hiatal hernia. The patient ingested a 12 mm tablet of barium without any difficulty. Normal visualized aortic arch and descending thoracic aorta. Normal visualized pulmonary parenchyma. Normal visualized osseous structures of the thorax. RAD/Esophagus Single Contrast IMPRESSION: Normal plain film x-ray examination (barium swallow) of the esophagus. Electronically Signed: Yury Douglass MD at 8:49 EDT ,
== END | disposition home or self-care (01) ==
PROVIDERS: PCP Internal Medicine; Referring Provider Otolaryngology; Visit Provider Otolaryngology
DX: R13.10 Dysphagia, unspecified (principal)
CPT/HCPCS: 74220

== ENCOUNTER → 2024-01-07 | Outpatient (CLI) | payer OTHER, SELFPAY ==
--- NOTE | 2024-01-07 07:31 | CT_ITS ---
EXAM: CT MAXILLOFACIAL SINUSES WITHOUT INTRAVENOUS CONTRAST CLINICAL INDICATION: SINUSITIS X 3 MONTHS TECHNIQUE: Helically acquired images were obtained of the maxillofacial sinuses without intravenous contrast. This CT exam was performed using one or more of the following dose reduction techniques: automated exposure control, adjustment of the mA and/or kV according to patient size, and/or use of iterative reconstruction technique. COMPARISON: CT head, 03/13/2022 FINDINGS: MAXILLARY SINUSES: Clear. Ostiomeatal complexes are normally formed. SPHENOID SINUSES: Clear. FRONTAL SINUSES: Clear. ETHMOID AIR CELLS: Clear. NASAL CAVITY/SEPTUM: Nasal septum is midline. Nasal turbinates are unremarkable. BONES/JOINTS: Leftward nasal septal deviation and spurring abutting the inferior turbinate. ORBITS: No acute findings. DENTAL: The patient is nearly edentulous. No periodontal osseous erosion. CT/Sinus/Facial Bone IMPRESSION: No significant sinonasal opacity or evidence of sinus outflow pathway obstruction. Leftward nasal deviation and its variant. Electronically Signed: Gerhard Carpio DO at 22:22 EDT ,
== END | disposition home or self-care (01) ==
LOC: CT 07:23
PROVIDERS: PCP Internal Medicine; Referring Provider Otolaryngology; Visit Provider Otolaryngology
DX: J32.9 Chronic sinusitis, unspecified (principal)
CPT/HCPCS: 70486

== ENCOUNTER → 2024-03-03 | Outpatient (CLI) | payer OTHER, SELFPAY ==
--- NOTE | 2024-03-03 15:10 | RAD_ITS ---
STUDY: X-RAY - LUMBAR SPINE REASON FOR EXAM: Male, 58 years old. Lumbar radiculopathy. TECHNIQUE: 2 view(s) of the lumbar spine were obtained. COMPARISON: None FINDINGS: Osteopenia. Normal lumbar lordosis. No scoliosis. 16 mm of anterolisthesis of L5 on S1. Laminectomies with posterior fusion and bone grafting from L4 to S1 with intervertebral fusion at these levels. Diffuse moderate lower thoracic and lumbosacral facet sclerosis. Moderate to marked intervertebral disc space narrowing at L3-4 with osteophytes. Normal soft tissues. RAD/Lumbar Spine 2 or 3 Views IMPRESSION: Osteopenia with postsurgical changes, spondylolisthesis at L5-S1, interbody fusion at L4-5 and L5-S1 and diffuse spondylosis. No acute finding. Electronically Signed: Kirill Pierce MD at 15:56 EDT ,
== END | disposition home or self-care (01) ==
LOC: RAD 15:02
PROVIDERS: PCP Internal Medicine; Referring Provider Anesthesiology Pain Medicine; Visit Provider Anesthesiology Pain Medicine
DX: M54.16 Radiculopathy, lumbar region (principal); M85.88 Other specified disorders of bone density and structure, other site; M43.17 Spondylolisthesis, lumbosacral region; Z98.1 Arthrodesis status
CPT/HCPCS: 72100

== ENCOUNTER → 2024-03-28 | Outpatient (CLI) | payer OTHER, SELFPAY ==
--- NOTE | 2024-03-28 10:26 | RAD_ITS ---
STUDY: X-RAY - LUMBOSACRAL SPINE REASON FOR EXAM: Male, 58 years old. Low back pain TECHNIQUE: 2 limited view(s) of the lumbosacral spine were obtained. COMPARISON: 03/03/2024 FINDINGS: Patient has undergone previous pedicle screw fusion surgery at L4-L5 and S1 to stabilize a grade 1 spondylolisthesis. No hardware complication or failure noted There is straightening of the normal lumbar lordosis. There is normal alignment of the vertebrae. No instability on the flexion or extension views. However, range of motion is extremely limited. There is diffuse demineralization with multi-level endplate spondylosis. There is multi-level degenerative disc disease with multi-level disc space narrowing. Normal bilateral sacral ala, sacroiliac joints, and visualized sacrum. Normal visualized soft tissue structures. RAD/L/S Spine Bending Flex/Ext IMPRESSION: Stable postsurgical changes from L4 to S1 to stabilize a grade 1 spondylolisthesis at L5/S1. No instability on the flexion or extension views. However, range of motion is limited Multilevel degenerative changes in the lumbar spine and no demonstrated fracture or suspicious osseous lesion Electronically Signed: Daniel Nguyễn MD at 10:53 EDT ,
== END | disposition home or self-care (01) ==
PROVIDERS: PCP Internal Medicine; Referring Provider Anesthesiology Pain Medicine; Visit Provider Anesthesiology Pain Medicine
DX: M54.16 Radiculopathy, lumbar region (principal)
CPT/HCPCS: 72120

== ENCOUNTER → 2024-09-05 | Outpatient (CLI) | payer OTHER, SELFPAY | END | disposition home or self-care (01) | LOC: LABSPEC 17:03 | PROVIDERS: PCP Internal Medicine; Visit Provider Physician Assistant | DX: R30.0 Dysuria (principal) | CPT/HCPCS: 87086 ==

== ENCOUNTER → 2024-09-13 | Outpatient (CLI) | payer OTHER, SELFPAY ==
[2024-09-13 15:57] LABS: PSA,Total - Annual Screen 0.85 ng/mL (0.02-4.00)
== END | disposition home or self-care (01) ==
PROVIDERS: PCP Internal Medicine; Referring Provider Urology; Visit Provider Urology
DX: Z12.5 Encounter for screening for malignant neoplasm of prostate (principal)
CPT/HCPCS: 36415; 84153; G0103

== ENCOUNTER → 2024-09-20 | Outpatient (CLI) | payer OTHER, SELFPAY ==
--- NOTE | 2024-09-20 15:21 | CT_ITS ---
PROCEDURE: CT ABD/PELVIS W/WO CONTRAST 09/20/2024 REASON FOR EXAM: GENERALIZED ABDOMIANL PAIN TECHNIQUE: Abdomen and pelvis CT with intravenous contrast. Coronal and Sagittal reconstruction series were provided. PATIENT PREPARATION: Per protocol ORAL CONTRAST TYPE: None. AMOUNT: mL CONTRAST: Isovue 370 VOLUME: 95 mL 18 gauge IV One or more dose reduction techniques were used (e.g., Automated exposure control, adjustment of the mA and/or kV according to patient size, use of iterative reconstruction technique. RADIATION DOSE SUMMARY: CTDlvol: 1352 mGy DLP: 2713.2 mGycm COMPARISON: None available FINDINGS: Lung bases: Streaky opacity within the right middle lobe, likely representing atelectasis or scarring. Liver: Unremarkable Gallbladder: Unremarkable Spleen: Unremarkable Pancreas: Diffuse fatty atrophy of the pancreas Adrenals: Unremarkable Kidneys: Kidneys are normal in size and configuration. Parapelvic cyst within the left kidney. Bladder: No focal bladder wall thickening. Reproductive Organs: Unremarkable Bowel: Lack of oral contrast limits evaluation the bowel. No small bowel or large bowel obstruction or dilation. Scattered diverticulosis within the sigmoid colon. Appendix: Not visualized Lymph nodes: No lymphadenopathy. Vasculature: Patent vasculature. Peritoneum / Retroperitoneum: Unremarkable. Large fat containing ventral wall hernia. Bones: Postsurgical changes of a fusion hardware within the L4-S1. CT/CT Abd/Pelvis W/WO Contrast IMPRESSION: No acute pathology within the abdomen or pelvis. Diffuse fatty atrophy of the pancreas. Diverticulosis within the sigmoid colon without evidence for diverticulitis. Large fat containing ventral wall hernia. Reading Location: [facility]
== END | disposition home or self-care (01) ==
LOC: CT 14:56
PROVIDERS: PCP Internal Medicine; Referring Provider Urology; Visit Provider Urology
DX: R10.84 Generalized abdominal pain (principal)
CPT/HCPCS: 74178; Q9967

== ENCOUNTER 2024-10-05 08:55 | Emergency (ER) | payer OTHER, SELFPAY ==
[2024-10-05 08:56] VITALS: BP 162/101; PULSE 78; RESP 18; TEMP 36.8; O2SAT 97; BMI 30.2
--- NOTE | 2024-10-05 09:13 | ED.VIS.GI ---
HPI HPI - GI History of Present Illness Chief Complaint: GI Bleed Detail of Chief Complaint: Blood in stool Informant: patient Narrative Narrative: Patient presents with bloody stools that started around 2 AM. Patient states that he had a cystoscopy 8 days ago and did not take the pretreatment with antibiotic. 5 days ago started running a fever therefore he filled his prescription for Keflex and took 2 days worth of Keflex did feel somewhat improved.. Last evening around 2 AM he developed diarrhea. Stool was orange and red in color. This morning while at work he had bright red blood per rectum. He had about 12 episodes of diarrhea. Patient also has history of Crohn's. Currently on Macrobid. He describes diffuse abdominal cramping. He feels weak overall. He is not on blood thinners. Remote history of C. difficile. He had some nausea but no vomiting [facility] Medical History Wears dentures Anxiety History of steroid therapy Bladder disease Anemia Migraine headache Back pain Difficulty swallowing History of GI bleed History of diverticulitis Gastric reflux Non-smoker Shortness of breath on exertion Leg cramps History of pain when walking History of stress test Cardiology follow-up encounter Restless leg syndrome GERD (gastroesophageal reflux disease) Depression Crohn's colitis Spinal stenosis Osteoporosis Benign neoplasm, unspecified site Cervicalgia HTN (hypertension) Home Medications ?Medication ?Instructions ?Recorded ?Last Taken ?Type acetaminophen 500 mg tablet 1,000 mg PO BID 02/17/19 10/04/24 History cyclobenzaprine 5 mg tablet 5 mg PO TID PRN Spasms 10/24/22 Unknown History hydrocodone-acetaminophen 5-325mg 1 tab PO BID PRN pain 11/11/22 10/04/24 History 5mg-325mg losartan 50 mg tablet 50 mg PO BID 09/05/24 10/05/24 History omeprazole 40 mg capsule,delayed 40 mg PO QAM 09/05/24 10/04/24 History release amlodipine 2.5 mg tablet 2.5 mg PO DAILY 10/05/24 10/04/24 History dicyclomine 10 mg capsule 20 mg (2 x 10 mg) PO TIDAC #20 10/05/24 Unknown Rx CAPSULES ergocalciferol (vitamin D2) 1,250 1,250 mcg PO QWEEK 10/05/24 09/29/24 History mcg (50,000 unit) capsule finasteride 5 mg tablet 5 mg PO DAILY 10/05/24 10/05/24 History hydroxyzine HCl 25 mg tablet 25 mg PO Q6H PRN itch 10/05/24 Unknown History nitrofurantoin 1 cap PO BID 10/05/24 10/04/24 History monohydrate/macrocrystals 100 mg capsule oxycodone myristate 27 mg capsule 27 mg PO BID 10/05/24 Unknown History sprinkle extended release 12hr(DON'T CRUSH) (Xtampza ER) phenazopyridine 100 mg tablet 100 mg PO TID PRN pain 10/05/24 10/04/24 History pregabalin 25 mg capsule 25 mg PO BID 10/05/24 10/05/24 History propranolol 20 mg tablet 10 mg PO BID 10/05/24 10/05/24 History tamsulosin 0.4 mg capsule 0.4 mg PO QHS 10/05/24 10/04/24 History Allergy/AdvReac Type Severity Reaction Status Date / Time ciprofloxacin (From Cipro) Allergy Hives Verified 09/05/24 16:56 succinylcholine (From Allergy stopped Verified 09/05/24 16:56 Anectine) breathing sulfamethoxazole (From Allergy Hives Verified 09/05/24 16:56 Bactrim) trimethoprim (From Bactrim) Allergy Hives Verified 09/05/24 16:56 meperidine (From Demerol) AdvReac Nausea Verified 09/05/24 16:56 Family History Mother Hypertension Father CAD (coronary artery disease) Esophageal cancer Brother Multiple myeloma Surgical History Hx of repair of rotator cuff Hx of arthroscopy of shoulder Hx of colonoscopy History of tonsillectomy S/P rotator cuff repair H/O knee surgery H/O inguinal hernia repair History of cataract extraction History of lumbar surgery History of appendectomy Social History Smoking Status: Never smoker alcohol intake: current alcohol intake frequency: a few times a week Alcohol type: wine ROS ROS ED Review of Systems ROS Unobtainable: other Constitutional Constitutional ED: Reports lethargy; Denies chills, fever(s), sweats or weight loss Eyes Eyes: Denies blurry vision, change in vision or diplopia ENT ENT ED: Denies rhinorrhea or sore throat Cardiovascular Cardiovascular: Denies chest pain, orthopnea or racing heartbeat Respiratory/Chest Respiratory/Chest: Denies cough, dyspnea, dyspnea on exertion, orthopnea or sputum Gastrointestinal Gastrointestinal: Reports abdominal pain, diarrhea, nausea and other Details: Bright red blood per rectum ; Denies vomiting Genitourinary Genitourinary ED: Denies dysuria, hematuria or urinary frequency Musculoskeletal Musculoskeletal: Denies arthralgias, back pain, myalgias or neck pain Integumentary Denies abscess, Abrasions or rash Neurologic Neurologic: Reports weakness; Denies headache(s) Psychiatric Psychiatric: Denies anxiety, depression or suicidal thoughts Endocrine Endocrinology: Denies polydipsia, polyphagia or polyuria Hematologic/Lymphatic Hematologic/Lymphatic: Denies easy bleeding, easy bruising or lymphadenopathy Allergic/Immunologic Allergic/Immunologic ED: Denies mouth swelling, tongue swelling or urticaria EXAM Physical Exam Const Vital Signs: 10/05/24 08:56 10/05/24 10:55 10/05/24 12:28 Temperature 98.2 F Temperature Source Oral Pulse Rate 78 64 72 Respiratory Rate 18 16 18 Blood Pressure 162/101 H 144/78 H 144/91 H Blood Pressure Mean 121 100 108 Pulse Ox 97 94 96 Oxygen Delivery Method Room Air Room Air Room Air 10/05/24 14:00 Temperature Temperature Source Pulse Rate 61 Respiratory Rate 18 Blood Pressure 142/88 H Blood Pressure Mean 106 Pulse Ox 97 Oxygen Delivery Method Room Air Positive well nourished and well developed General Appearance ED: well developed and NAD HEENT Reports TM's clear and moist mucous membranes normocephalic and atraumatic; Negative for trauma or tenderness Tympanic Membrane ED: Yes TM's clear Eyes PERRL and EOMs intact bilaterally General Eye ED: Negative for pale conjunctiva or scleral icterus Neck no lymphadenopathy, supple and no JVD General: Negative for tenderness Chest Wall inspection of chest normal and palpation of chest normal Chest: Negative for tenderness Resp normal respiratory effort and clear to auscultation bilaterally Effort and Inspection: Negative for respiratory distress or pain with movement Auscultation: Negative for rhonchi, wheezes or diminished lung sounds Cardio regular rate, regular rhythm, S1 normal heart sound, S2 normal heart sound and no murmurs Peripheral Pulses: pulses 2+ throughout GI normal to inspection, nondistended, normoactive bowel sounds, soft to palpation, non-tender, non-distended and no masses Back/Spine no CVA tenderness and no thoracic nor lumbar tenderness Extremity normal to inspection General Extremety ED: Negative for edema General Extremity: Negative for edema Neuro oriented x3, CN's II-XII intact bilaterally, no sensory deficits noted and gait normal Sensorium / Orientation: awake, alert, oriented to person, oriented to place and oriented to time Motor Exam: strength 5/5 throughout and strength abnormal Psych mental status grossly normal Skin no rashes or lesions noted and no wounds MDM MDM MDM Narrative Medical decision making narrative: Patient presents to the emergency department with rectal bleeding that started last evening. Had a cystoscopy recently and currently on Macrobid. He has history of Crohn's. History of diverticulitis in the past. IV line established. CBC with differential obtained showed a normal white count of 10.6 with hemoglobin 13.8 and platelet count of 300. Chemistries unremarkable. Lactate normal at 1.4. LFTs normal. Urinalysis showed 10-25 WBCs but only 100 leukocyte esterase and no bacteria. Patient had testing for C. difficile that was negative. CT scan of the abdomen pelvis with IV contrast showed fatty infiltration of the liver with stable ventral hernia and sigmoid diverticulosis but no evidence of diverticulitis. Stool also sent for enteric pathogens and those results are pending. Discussed case with gastroenterology Dr. Ellis. At this point is felt no further treatment is indicated. Source of the bleeding unclear although I suspect may be related related to diverticulosis. Less likely bleeding is ischemic as he has a normal lactate and not having significant pain just intermittent cramping. Patient also has history of Crohn's however he states this is different than his flareups and there were no changes on CT to indicate thickened bowel or inflammation. Patient will be started on Bentyl. He is advised to call GI office tomorrow with a update on his symptoms. He is to return to the ER for persistent heavy bleeding, worsening pain, fever, or condition worsen anyway. Lab Data Attestation: I reviewed the patient's lab results. Labs: Laboratory Results - last 24 hr 10/05/24 10/05/24 10/05/24 09:15 09:26 10:33 WBC 10.6 RBC 4.58 L Hgb 13.8 Hct 42.8 MCV 93.4 MCH 30.1 MCHC 32.2 RDW Std Deviation 44.8 H RDW Coeff of Gus 13.0 Plt Count 300 MPV 8.7 Immature Gran % (Auto) 0.600 Neut % (Auto) 72.5 H Lymph % (Auto) 17.4 L [place] % (Auto) 8.5 Eos % (Auto) 0.5 Baso % (Auto) 0.5 Absolute Neuts (auto) 7.7 Absolute Lymphs (auto) 1.84 Nucleated RBC % 0 Sodium 141 Potassium 3.5 Chloride 103 Carbon Dioxide 26.0 Anion Gap 12 BUN 16 Creatinine 0.89 Estim Creat Clear Calc 101.11 Est GFR (MDRD) Non-Af 97 BUN/Creatinine Ratio 17.5 Glucose 134 H Lactic Acid 1.4 Calcium 9.3 Total Bilirubin 0.58 AST 29 ALT 28 Alkaline Phosphatase 124 Total Protein 8.1 Albumin 3.9 Globulin 4.2 Albumin/Globulin Ratio 0.9 Urine Color Yellow Urine Clarity Clear Urine pH 6.5 Ur Specific [place] 1.005 Urine Protein TNP Urine Glucose (UA) Normal Urine Ketones Negative Urine Occult Blood 10 H Urine Nitrite Negative Urine Bilirubin Negative Urine Urobilinogen Normal Ur Leukocyte Esterase 100 H Urine RBC 0-5 SEEN Urine WBC 10-25 SEEN Ur Squamous Epith Cells 0 SEEN Urine Bacteria 0 SEEN Urine Mucus 0 SEEN U Random Total Protein 9.4 Blood Type A POSITIVE Antibody Screen NEGATIVE Radiography Diagnostic Testing: Clinical Impression(s) from Imaging Studies Abdomen/Pelvis CT 10/05/24 09:27 IMPRESSION: Fatty infiltration of the liver. Stable ventral hernia. Sigmoid diverticulosis without evidence of diverticulitis. Reading Location: [place] [id number] Discharge Plan Triage Chief Complaint: GI Bleed ED Provider: Kasie Francisco Dx/Rx/DC Orders Clinical Impression: Acute lower GI bleeding, Abdominal pain Instructions: ED Lower GI Bleeding (Stable), ED Abdominal Pain Unkn Cause Male... Prescriptions: New dicyclomine 10 mg capsule 20 mg PO TIDAC Qty: 20 0RF No Action hydrocodone-acetaminophen 5-325 mg tablet 1 tab PO BID PRN (Reason: pain) losartan 50 mg tablet 50 mg PO BID omeprazole 40 mg capsule,delayed release(DR/EC) 40 mg PO QAM acetaminophen 500 MG tablet 1,000 mg PO BID cyclobenzaprine 5 mg Tablet 5 mg PO TID PRN (Reason: Spasms) amlodipine 2.5 mg tablet 2.5 mg PO DAILY Patient Comments: pt takes at bedtime hydroxyzine HCl 25 mg tablet 25 mg PO Q6H PRN (Reason: itch) propranolol 20 mg tablet 10 mg PO BID pregabalin 25 mg capsule 25 mg PO BID tamsulosin 0.4 mg capsule 0.4 mg PO QHS finasteride 5 mg tablet 5 mg PO DAILY ergocalciferol (vitamin D2) 1,250 mcg (50,000 unit) capsule 1,250 mcg PO QWEEK Patient Comments: pt takes on nitrofurantoin monohyd/m-cryst 100 mg capsule 1 cap PO BID Patient Comments: started on 10/04/24 phenazopyridine 100 mg tablet 100 mg PO TID PRN (Reason: pain) Patient Comments: pt only takes at night Xtampza ER 27 mg cap,sprinkl,ER12hr(DONT CRUSH) 27 mg PO BID Primary Care Provider: Shara Temple Referrals: Shara Temple MD [Primary Care Provider] - Friend,DO Troy [Med Staff - Active Staff] - 1 Day Print Language: Korean Disposition Disposition: Home, Self Care
[2024-10-05 09:26] LABS: Absolute Lymphocyte Count 1.84 X10^3/uL (0.83-4.51); Absolute Neutrophil Count 7.7 X10^3/uL (2.0-7.7); Basophil# 0.05 X10^3/uL; Basophil% 0.5 % (0-1); Eosinophil# 0.05 X10^3/uL; Eosinophils% 0.5 % (0-5); Hematocrit 42.8 % (40-54); Hemoglobin 13.8 g/dL (13.0-16.5); Lymphocyte # 1.84 X10^3/ul (0.83-4.51); Lymphocyte % 17.4 % (19-41); Mean Corp Hgb Conc 32.2 g/dL (32-36); Mean Corpuscular Hgb 30.1 pg (27.0-32.0); Mean Corpuscular Volume 93.4 fL (80-94); Mean Platelet Vol. 8.7 fl (6.2-12.0); Monocyte% 8.5 % (0-10); NRBC Flagged by Analyzer 0 % (0-5); Neutrophil # 7.67 X10^3/uL (2.7-7.7); Neutrophil % 72.5 % (47-70); Platelet Count 300 K/mm3 (150-450); RBC Distribution Width SD 44.8 fl (35.1-43.9); Red Blood Count 4.58 M/mm3 (4.6-6.2); White Blood Count 10.6 K/mm3 (4.4-11.0)
--- NOTE | 2024-10-05 09:27 | CT_ITS ---
PROCEDURE: ABDOMEN/PELVIS W IV CONT ONLY 10/05/2024 REASON FOR EXAM: ABDOMINAL PAIN, BLOODY STOOL, HX OF CROHNS Recent cystoscopy. TECHNIQUE: Abdomen and pelvis CT with intravenous contrast. Coronal and Sagittal reconstruction series were provided. PATIENT PREPARATION: Per protocol ORAL CONTRAST TYPE: None. CONTRAST: Isovue 370 VOLUME: 100 mL One or more dose reduction techniques were used (e.g., Automated exposure control, adjustment of the mA and/or kV according to patient size, use of iterative reconstruction technique. RADIATION DOSE SUMMARY: CTDlvol: 17.3 mGy DLP: 1296.26 mGycm COMPARISON: Comparison is made with prior study dated September 20, 2024. FINDINGS: Lung bases: Stable minimal increased linear markings in the anterior aspect of the right lower lobe suggestive of possible scarring. Liver: Diffuse fatty infiltration. Gallbladder: Unremarkable Spleen: Normal size. Pancreas: Diffuse fatty atrophy. Adrenals: Unremarkable Kidneys: Stable left renal parapelvic cysts. Bladder: Unremarkable. Prosthetic enlargement. Central prostatic calcifications. Reproductive Organs: Bowel: Stable anterior ventral hernia containing nondilated portion of the transverse colon. Scattered sigmoid diverticulosis without radiographic evidence of diverticulitis. Appendix: Unremarkable Lymph nodes: No suspicious lymph node enlargement. Vasculature: Mild diffuse atherosclerotic calcifications are noted. Peritoneum / Retroperitoneum: Unremarkable Bones: Prior intrapedicular screw and cristopher fixation at the L4-L5 and L5-S1 levels. CT/Abdomen/Pelvis W IV Cont ONLY IMPRESSION: Fatty infiltration of the liver. Stable ventral hernia. Sigmoid diverticulosis without evidence of diverticulitis. Reading Location: [facility]
[2024-10-05 09:47] LABS: ALB/GLOB Ratio 0.9 RATIO (0.9-2.4); AST(SGOT) 29 U/L (<=37); Alanine Aminotransfer ALT/SGPT 28 U/L (<=46); Albumin, Serum 3.9 g/dL (3.4-4.8); Alkaline Phosphatase 124 U/L (40-129); Anion Gap 12 (5-15); BUN 16 mg/dL (4-19); BUN/Creat Ratio 17.5 RATIO (10-20); Calcium,Total 9.3 mg/dL (7.6-11.0); Chloride 103 mmol/L (98-108); Creatinine, Serum 0.89 mg/dL (0.70-1.20); EST Glomerular Filtration Rate 97 (>60); Estimated Creatinine Clearance 101.11 ml/min (50-250); Globulin 4.2 g/dL (2.2-4.2); Glucose 134 mg/dL (70-99); Potassium 3.5 mmol/L (3.3-5.1); Protein, Total 8.1 g/dL (5.9-8.4); Sodium Level 141 mmol/L (133-145); Total Bilirubin 0.58 mg/dL (0.00-1.30)
[2024-10-05 10:32] LABS: Lactic Acid 1.4 mmol/L (0.0-2.0)
[2024-10-05] MEDS: 0.9% Normal Saline (1000mL) 1,000 ML 999 ML IV (10:37)
[2024-10-05 10:51] LABS: Bacteria 0 SEEN /hpf (None Seen); Mucous, Urine 0 SEEN /hpf (<or=2+); Squamous Epithelial Cells - UA 0 SEEN /hpf (0-5)
[2024-10-05 10:55] VITALS: BP 144/78; PULSE 64; RESP 16; O2SAT 94
[2024-10-05 11:01] LABS: Color, Urine Yellow (Yellow); Glucose, Dipstick Normal (Normal); Ketone-Dipstick Negative (Negative); Leukocyte Esterase-Dipstick 100 /ul (Negative); Nitrite-Dipstick Negative (Negative); Occult Blood-Urine 10 /ul (Negative); Specific Gravity, Urine 1.005 (1.002-1.030); Urine Bilirubin Dipstick Negative (Negative); Urine Clarity Clear (Clear); Urine Urobilinogen Normal (Normal); Urine pH 6.5 (5.0 - 8.0)
[2024-10-05 11:41] LABS: Red Blood Cells-Urine 0-5 SEEN /hpf (0-5); White Blood Cells 10-25 SEEN /hpf (0-5)
[2024-10-05 11:52] LABS: Protein, Urine (Random) 9.4 mg/dL (0.0-12.0)
[2024-10-05 12:28] VITALS: BP 144/91; PULSE 72; RESP 18; O2SAT 96
[2024-10-05 14:00] VITALS: BP 142/88; PULSE 61; RESP 18; O2SAT 97
[2024-10-05 15:26] VITALS: BP 148/81; PULSE 74; RESP 20; TEMP 36.6; O2SAT 95
== END 2024-10-05 15:31 | disposition home or self-care (01) ==
PROVIDERS: Emergency Provider Emergency Medicine; PCP Internal Medicine; Visit Provider Emergency Medicine
DX: K92.2 Gastrointestinal hemorrhage, unspecified (principal); K50.90 Crohn's disease, unspecified, without complications; K43.9 Ventral hernia without obstruction or gangrene; I10 Essential (primary) hypertension; K76.0 Fatty (change of) liver, not elsewhere classified; R10.9 Unspecified abdominal pain; K21.9 Gastro-esophageal reflux disease without esophagitis; Z79.899 Other long term (current) drug therapy
CPT/HCPCS: 74177; 80053; 81001; 82274; 83605; 84156; 85025; 86850; 86900; 86901; 87077; 87086; 87088; 87186; 87493; 87506; 99282; Q9967; A4216

== ENCOUNTER → 2025-01-03 | Outpatient (CLI) | payer OTHER, SELFPAY ==
[2025-01-03 16:31] LABS: Barbiturate Urine NEGATIVE (< 200 ng/mL); Benzodiazepine Urine NEGATIVE (< 200 ng/mL); PCP Urine NEGATIVE (< 25 ng/mL); THC Urine NEGATIVE (< 50 ng/mL)
== END | disposition home or self-care (01) ==
LOC: LAB 12:41
PROVIDERS: PCP Internal Medicine; Referring Provider Anesthesiology Pain Medicine; Visit Provider Anesthesiology Pain Medicine
DX: F11.20 Opioid dependence, uncomplicated (principal)
CPT/HCPCS: 80307

== ENCOUNTER → 2025-06-01 | Outpatient (CLI) | payer OTHER, SELFPAY ==
--- NOTE | 2025-06-01 15:15 | RAD_ITS ---
PROCEDURE: HIP, UNI W/ PELVIS 2-3 VIEWS 06/01/2025 REASON FOR EXAM: PAIN TECHNIQUE: Procedure Code: [facility] Modality: DX Procedure: HIP, UNI W/ PELVIS 2-3 VIEWS COMPARISON: None FINDINGS: Prior fusion of the lower lumbar spine. Mild degree of osteoarthritis of both hip joints. Degenerative changes of the symphysis pubis. RAD/HIP, UNI W/ Pelvis 2-3 Views IMPRESSION: Degenerative changes. No acute fracture is seen. Reading Location: [id number]
== END | disposition home or self-care (01) ==
LOC: RAD 15:02
PROVIDERS: PCP Internal Medicine; Referring Provider Anesthesiology Pain Medicine; Visit Provider Anesthesiology Pain Medicine
DX: M25.551 Pain in right hip (principal)
CPT/HCPCS: 73502